=== PATIENT | male | born 1950 | race Caucasian/White ===

== ENCOUNTER → 2021-07-25 | Outpatient (CLI) | payer SELFPAY | END | disposition home or self-care (01) | LOC: LAB SHORT 15:35 | DX: L03.116 Cellulitis of left lower limb (principal) | CPT/HCPCS: 87070; 87075; 87077; 87147; 87186; 87205 ==

== ENCOUNTER → 2022-01-15 | Outpatient (CLI) | payer MEDICARE ==
[2022-01-15 11:21] LABS: Source, Urine Clean Catch
[2022-01-15 12:35] LABS: Appearance, Urine Clear (Clear); Bilirubin, Urine Neg (Neg); Blood, Urine Neg (Neg); Color, Urine Yellow (P-Yellow); Glucose Qualitative, Urine Neg (Neg); Ketones, Urine Neg (Neg); Leukocyte Esterase, Urine 2+ (Neg); Nitrite, Urine Neg (Neg); Protein, Urine Neg (Neg); Specific Gravity, Urine 1.015 (1.003-1.022); Urobilinogen, Urine NORM (Normal)
[2022-01-15 12:52] LABS: Protein, Urine Random <5.0 mg/dL (0.0-11.9); Protein/Creat Ratio, Ur Random Unable to Calculate
[2022-01-15 13:51] LABS: Bacteria Many /hpf; Red Blood Cells, Urine 0-2 /hpf (0-2); Squamous Epithelial Cells Not Seen /hpf (Few); White Blood Cells, Urine 25-50 /hpf (0-5)
[2022-01-18 11:08] LABS: M-SPIKE, % Not Observed % (Not Observed); PROTEIN,TOTAL,URINE <4.0 mg/dL (Not Estab.)
== END | disposition home or self-care (01) ==
LOC: LAB 10:54 → LAB SHORT 10:54
PROVIDERS: Internal Medicine Nephrology
DX: N18.32 Chronic kidney disease, stage 3b (principal)
CPT/HCPCS: 81001; 82570; 84156

== ENCOUNTER 2022-02-17 15:24 | Emergency (ER) | payer MEDICARE, OTHER ==
[~2022-02-17] VITALS: Ht 188 cm; Wt 102.1 kg
[2022-02-17 16:23] LABS: BASOPHILS ABSOLUTE AUTO 0.05 K/mm3 (0.00-0.23); BASOPHILS PERCENT AUTO 0 % (0-2); EOSINOPHILS ABSOLUTE AUTO 0.59 K/mm3 (0.00-0.68); EOSINOPHILS PERCENT AUTO 5 % (0-6); Hematocrit 31.6 % (37.0-53.0); Hemoglobin 10.5 g/dL (13.5-17.5); IMMATURE GRAN ABSOLUTE AUTO 0.03 K/mm3 (0.00-0.10); IMMATURE GRAN PERCENT AUTO 0 % (0-1); LYMPHOCYTES ABSOLUTE AUTO 1.82 K/mm3 (0.84-5.20); LYMPHOCYTES PERCENT AUTO 15 % (21-46); MONOCYTES ABSOLUTE AUTO 0.76 K/mm3 (0.16-1.47); MONOCYTES PERCENT AUTO 6 % (4-13); Mean Corpuscular HGB 33.2 pg (26.0-34.0); Mean Corpuscular HGB Conc 33.2 g/dL (31.5-36.5); Mean Corpuscular Volume 100 fL (80-100); Mean Platelet Volume 11.4 fL (9.1-12.4); NEUTROPHILS ABSOLUTE AUTO 8.95 K/mm3 (1.96-9.15); NEUTROPHILS PERCENT AUTO 74 % (41-73); Platelet Count 147 K/mm3 (150-400); RDW Coefficient Variation 13.7 % (11.7-14.2); RDW Standard Deviation 50.5 fL (35.1-46.3); Red Blood Cell Count 3.16 M/mm3 (4.30-5.90)
[2022-02-17 16:35] LABS: Albumin, Blood 3.7 g/dL (3.4-5.0); Albumin/Globulin Ratio 1.1 (0.8-1.8); Bilirubin, Total 0.7 mg/dL (0.1-1.0); Bun/Creatinine Ratio 40.5 (12.0-20.0); Calcium, Blood 9.2 mg/dL (8.5-10.1); Creatinine, Blood 2.2 mg/dL (0.60-1.20); Globulin, Blood 3.4 g/dL (2.2-4.0); Potassium, Blood 4.9 mmol/L (3.5-5.5); Total Protein, Blood 7.1 g/dL (6.4-8.2)
[2022-02-17] MEDS ORDERED: CLIN300 PO (19:30)
== END 2022-02-17 20:07 | disposition home or self-care (01) ==
LOC: ER 15:24
PROVIDERS: Physician Assistant
DX: L03.221 Cellulitis of neck (principal); I25.10 Atherosclerotic heart disease of native coronary artery without angina pectoris; G47.33 Obstructive sleep apnea (adult) (pediatric); F17.210 Nicotine dependence, cigarettes, uncomplicated; I11.0 Hypertensive heart disease with heart failure; I50.9 Heart failure, unspecified; E11.9 Type 2 diabetes mellitus without complications; Z91.041 Radiographic dye allergy status; Z95.1 Presence of aortocoronary bypass graft
CPT/HCPCS: 36415; 70490; 80053; 83690; 85025

== ENCOUNTER → 2022-02-28 | Outpatient (CLI) | payer MEDICARE ==
[~2022-02-28] MED LIST: CLIN300 PO
== END | disposition home or self-care (01) ==
LOC: LAB SHORT 07:41
DX: R22.1 Localized swelling, mass and lump, neck (principal)
CPT/HCPCS: 88173

== ENCOUNTER 2022-04-24 09:43 | Day surgery (SDC) | payer MEDICARE, OTHER ==
[~2022-04-24] VITALS: Ht 188 cm; Wt 108.0 kg
[2022-04-24] MEDS ORDERED: ALBU90OI (10:05)
[2022-04-24] MEDS ORDERED: ALLO100 (10:05)
[2022-04-24] MEDS ORDERED: Aspir 8181 MG (10:07)
[2022-04-24] MEDS ORDERED: ATOR40TA (10:07)
[2022-04-24] MEDS ORDERED: FURO20 (10:07)
[2022-04-24] MEDS ORDERED: CARV3.125 (10:07)
[2022-04-24] MEDS ORDERED: LISI5 (10:08)
[2022-04-24] MEDS ORDERED: GABA300 (10:08)
[2022-04-24] MEDS ORDERED: GLIP5ER (10:08)
[2022-04-24] MEDS ORDERED: ATROVENT HFA12.9 GM (10:08)
[2022-04-24] MEDS ORDERED: TAMS.4ER (10:09)
[2022-04-24] MEDS ORDERED: ONDA4 (10:09)
--- NOTE | 2022-04-24 10:33 | NUR ---
04/24/[address] NOTIFIED THAT PT HAS WHEEZES BILATERALLY THROUGHOUT ASCULATION BY [email or web address].
--- NOTE | 2022-04-24 11:20 | NUR ---
04/24/22 1120 ZACH PAIZ 0.25MG OF EPI ADDED TO 50MLS OF INJECTABLE NS TO CREATE A SOLUTION OF NS WITH EPI 1:200,000. 6MLS OF SOLUTION INJECTED PRIOR TO STERILE PREP.
--- NOTE | 2022-04-24 13:09 | NUR ---
04/24/22 1309 MARI DENIS TRIAL FROM 15L TO 10L VIA FACE TENT. O2 98%
--- NOTE | 2022-04-24 14:03 | NUR ---
04/24/22 1403 MARI DENIS PAIN 9+/10. WILL GIVE ANOTHER DOSE OF FENTANYL 510MCG= 150MCG TOTAL
== END 2022-04-24 15:25 | disposition home or self-care (01) ==
LOC: ORSCSDS 09:43
PROVIDERS: Otolaryngology
PROC: 0CB90ZZ Excision of Left Parotid Gland, Open Approach (ICD-10-PCS; principal; 2022-04-24 11:00)
PROC: 00BM0ZZ Excision of Facial Nerve, Open Approach (ICD-10-PCS; principal; 2022-04-24 11:00)
DX: D11.0 Benign neoplasm of parotid gland (principal); I12.9 Hypertensive chronic kidney disease with stage 1 through stage 4 chronic kidney disease, or unspecified chronic kidney disease; E11.22 Type 2 diabetes mellitus with diabetic chronic kidney disease; N18.4 Chronic kidney disease, stage 4 (severe); I48.91 Unspecified atrial fibrillation; I51.9 Heart disease, unspecified; E78.5 Hyperlipidemia, unspecified; J44.9 Chronic obstructive pulmonary disease, unspecified; I50.9 Heart failure, unspecified; Z95.9 Presence of cardiac and vascular implant and graft, unspecified; Z79.82 Long term (current) use of aspirin; Z79.84 Long term (current) use of oral hypoglycemic drugs; Z79.51 Long term (current) use of inhaled steroids; Z79.899 Other long term (current) drug therapy; F17.210 Nicotine dependence, cigarettes, uncomplicated
CPT/HCPCS: 82947; A9270; J0171; J1100; J2250; J2405; J2704; J3010; J7120

== ENCOUNTER → 2022-08-06 | Outpatient (CLI) | payer MEDICARE, OTHER ==
[~2022-08-06] MED LIST changes: +ALBU90OI; +ALLO100 PO; +ATOR40TA PO; +ATROVENT HFA12.9 GM; +Aspir 8181 MG; +CARV3.125 PO; +FURO20 PO; +GABA300 PO; +GLIP5ER PO; +LISI5 PO; +Norco 5-325 Ta1 EACH PO; +ONDA4 PO; +TAMS.4ER PO
[2022-08-06 16:37] LABS: BASOPHILS ABSOLUTE AUTO 0.03 K/mm3 (0.00-0.23); BASOPHILS PERCENT AUTO 0 % (0-2); EOSINOPHILS ABSOLUTE AUTO 0.25 K/mm3 (0.00-0.68); EOSINOPHILS PERCENT AUTO 3 % (0-6); Hematocrit 24.4 % (37.0-53.0); Hemoglobin 7.7 g/dL (13.5-17.5); IMMATURE GRAN ABSOLUTE AUTO 0.03 K/mm3 (0.00-0.10); IMMATURE GRAN PERCENT AUTO 0 % (0-1); LYMPHOCYTES ABSOLUTE AUTO 1.49 K/mm3 (0.84-5.20); LYMPHOCYTES PERCENT AUTO 17 % (21-46); MONOCYTES ABSOLUTE AUTO 0.67 K/mm3 (0.16-1.47); MONOCYTES PERCENT AUTO 8 % (4-13); Mean Corpuscular HGB 32.9 pg (26.0-34.0); Mean Corpuscular HGB Conc 31.6 g/dL (31.5-36.5); Mean Corpuscular Volume 104 fL (80-100); Mean Platelet Volume 10.8 fL (9.1-12.4); NEUTROPHILS ABSOLUTE AUTO 6.22 K/mm3 (1.96-9.15); NEUTROPHILS PERCENT AUTO 72 % (41-73); NRBC ABSOLUTE 0.02 K/mm3 (0.00-0.02); NRBC Auto 0.2 /100 WBC (0.0-0.2); Platelet Count 178 K/mm3 (150-400); RDW Coefficient Variation 18.2 % (11.7-14.2); RDW Standard Deviation 67.9 fL (35.1-46.3); Red Blood Cell Count 2.34 M/mm3 (4.30-5.90); White Blood Cell Count 8.69 K/mm3 (4.00-11.30)
[2022-08-06 16:43] LABS: Bun/Creatinine Ratio 28.6 (12.0-20.0); Calcium, Blood 8.7 mg/dL (8.5-10.1); Creatinine, Blood 2.8 mg/dL (0.60-1.20); Potassium, Blood 5.7 mmol/L (3.5-5.5)
== END | disposition home or self-care (01) ==
LOC: LAB SHORT 16:29
PROVIDERS: Family Medicine
DX: I50.9 Heart failure, unspecified (principal); N19 Unspecified kidney failure
CPT/HCPCS: 80048; 83880; 85025

== ENCOUNTER 2022-08-09 15:24 | Observation (INO) | payer MEDICARE, OTHER ==
[~2022-08-09] VITALS: Ht 188 cm; Wt 115.6 kg
[~2022-08-09 15:24] MED LIST changes: -ALBU90OI; +ALBU90OI INH; -ATROVENT HFA12.9 GM; +ATROVENT HFA12.9 GM INH; -Norco 5-325 Ta1 EACH PO
[2022-08-09 16:07] LABS: Source, Urine Clean Catch
[2022-08-09 16:12] LABS: Appearance, Urine Turbid (Clear); Bilirubin, Urine Neg (Neg); Blood, Urine 3+ (Neg); Color, Urine Yellow (P-Yellow); Glucose Qualitative, Urine Neg (Neg); Ketones, Urine Neg (Neg); Leukocyte Esterase, Urine 3+ (Neg); Nitrite, Urine Pos (Neg); Protein, Urine 2+ (Neg); Specific Gravity, Urine 1.015 (1.003-1.022); Urobilinogen, Urine NORM (Normal)
[2022-08-09 16:27] LABS: White Blood Cells, Urine TNTC /hpf (0-5)
[2022-08-09 16:27] LABS: BASOPHILS ABSOLUTE AUTO 0.03 K/mm3 (0.00-0.23); BASOPHILS PERCENT AUTO 0 % (0-2); EOSINOPHILS ABSOLUTE AUTO 0.26 K/mm3 (0.00-0.68); EOSINOPHILS PERCENT AUTO 3 % (0-6); Hematocrit 26.4 % (37.0-53.0); Hemoglobin 8.4 g/dL (13.5-17.5); IMMATURE GRAN ABSOLUTE AUTO 0.02 K/mm3 (0.00-0.10); IMMATURE GRAN PERCENT AUTO 0 % (0-1); LYMPHOCYTES ABSOLUTE AUTO 1.69 K/mm3 (0.84-5.20); LYMPHOCYTES PERCENT AUTO 17 % (21-46); MONOCYTES ABSOLUTE AUTO 0.73 K/mm3 (0.16-1.47); MONOCYTES PERCENT AUTO 8 % (4-13); Mean Corpuscular HGB 32.9 pg (26.0-34.0); Mean Corpuscular HGB Conc 31.8 g/dL (31.5-36.5); Mean Corpuscular Volume 104 fL (80-100); Mean Platelet Volume 11.3 fL (9.1-12.4); NEUTROPHILS ABSOLUTE AUTO 7.03 K/mm3 (1.96-9.15); NEUTROPHILS PERCENT AUTO 72 % (41-73); Platelet Count 195 K/mm3 (150-400); RDW Coefficient Variation 17.9 % (11.7-14.2); RDW Standard Deviation 66.8 fL (35.1-46.3); Red Blood Cell Count 2.55 M/mm3 (4.30-5.90); White Blood Cell Count 9.76 K/mm3 (4.00-11.30)
[2022-08-09 16:35] LABS: Bacteria Mod /hpf; Squamous Epithelial Cells Not Seen /hpf (Few)
[2022-08-09 16:53] LABS: Albumin, Blood 3.1 g/dL (3.4-5.0); Albumin/Globulin Ratio 0.8 (0.8-1.8); Bilirubin, Total 0.6 mg/dL (0.1-1.0); Bun/Creatinine Ratio 34.1 (12.0-20.0); Calcium, Blood 8.8 mg/dL (8.5-10.1); Creatinine, Blood 2.49 mg/dL (0.60-1.20); Globulin, Blood 3.7 g/dL (2.2-4.0); Potassium, Blood 4.6 mmol/L (3.5-5.5); Total Protein, Blood 6.8 g/dL (6.4-8.2)
[2022-08-09] MEDS ORDERED: Norco 5-325 Ta1 EACH PO (20:29)
[2022-08-09 22:51] LABS: Hematocrit 23.9 % (37.0-53.0); Hemoglobin 7.6 g/dL (13.5-17.5)
[2022-08-10 03:50] LABS: BASOPHILS ABSOLUTE AUTO 0.03 K/mm3 (0.00-0.23); BASOPHILS PERCENT AUTO 0 % (0-2); EOSINOPHILS ABSOLUTE AUTO 0.28 K/mm3 (0.00-0.68); EOSINOPHILS PERCENT AUTO 4 % (0-6); Hematocrit 23.6 % (37.0-53.0); Hemoglobin 7.6 g/dL (13.5-17.5); IMMATURE GRAN ABSOLUTE AUTO 0.02 K/mm3 (0.00-0.10); IMMATURE GRAN PERCENT AUTO 0 % (0-1); LYMPHOCYTES ABSOLUTE AUTO 1.88 K/mm3 (0.84-5.20); LYMPHOCYTES PERCENT AUTO 24 % (21-46); MONOCYTES ABSOLUTE AUTO 0.66 K/mm3 (0.16-1.47); MONOCYTES PERCENT AUTO 9 % (4-13); Mean Corpuscular HGB 33.2 pg (26.0-34.0); Mean Corpuscular HGB Conc 32.2 g/dL (31.5-36.5); Mean Corpuscular Volume 103 fL (80-100); Mean Platelet Volume 11.1 fL (9.1-12.4); NEUTROPHILS ABSOLUTE AUTO 4.92 K/mm3 (1.96-9.15); NEUTROPHILS PERCENT AUTO 63 % (41-73); Platelet Count 172 K/mm3 (150-400); RDW Coefficient Variation 17.5 % (11.7-14.2); RDW Standard Deviation 65.3 fL (35.1-46.3); Red Blood Cell Count 2.29 M/mm3 (4.30-5.90); White Blood Cell Count 7.79 K/mm3 (4.00-11.30)
[2022-08-10 04:05] LABS: Bun/Creatinine Ratio 32.1 (12.0-20.0); Calcium, Blood 8.4 mg/dL (8.5-10.1); Creatinine, Blood 2.71 mg/dL (0.60-1.20); Potassium, Blood 4.5 mmol/L (3.5-5.5)
--- NOTE | 2022-08-10 05:55 | NUR ---
END OF SHIFT SUMMARY PT AGITATED, UNCOOPERATIVE, NEEDY AND BORDERLINE VERBALLY AGGRESSIVE, 1150CC UO, SOFT, BROWN, NORMAL APPEARING BM ON BSC, CPAP OVERNIGHT WITH 5LPM BLEED IN, PT HAS COPIUS, THICK, GRAYISH, WHITE SECRETIONS, SOFT B/P AT TIMES, AFEBRILE, HGB AT 2300-7.6 AND 7.6 AGAIN WITH AM LABS, PT DID AGREE TO REMAIN NPO AFTER DROP IN HGB OVERNIGHT AND AGREED TO FURTHER DISCUSS NEED FOR SCOPE WITH
--- NOTE | 2022-08-10 10:29 | NUR ---
PT TO EGD SCOPE AT 1020. PT TRANSFERED FROM BED TO [facility], MINIMAL ASSISTANCE, TOLERATED WELL. PT ON RA.
--- NOTE | 2022-08-10 10:59 | NUR ---
08/10/22 1059 Wayne Heaton MONITOR INTACT WITH CONTINUOUS PULSE OXIMETRY AND INTERMITTENT BP. History, Chart, Medications and Allergies reviewed before start of procedure. 3-LEAD EKG REVIEWED WITH PHYSICIAN PRIOR TO START OF PROCEDURE. O2 VIA N/C INTACT THROUGHOUT SEDATION/PROCEDURE. Bite Block Placed
--- NOTE | 2022-08-10 19:34 | NUR ---
SHIFT SUMMARY PT A/OX3-4. PT BP'S SOFTER TODAY WITH DIASTOLIC RANGING 40-60, MAPS REMAINED ABOVE 65. OTHER VSS THROUGHOUT SHIFT WITH 02 SATS IN THE 90'S ON RA. NO REPORT OF CHEST PAIN/PRESSURE THROUGHOUT SHIFT. NO REPORT OF SOB/DYSPNEA THROUGHOUT SHIFT. PT REPORTED SOME LIGHTHEADEDNESS THIS AM AFTER RETURNING FROM PROCEDURE, PT RESTED FOR A COUPLE HOURS AFTER PROCEDURE. PT USING URINAL AT THE BEDSIDE, USING FWW FOR STABILITY, TOLERATED WELL. PT SISTER AT BEDSIDE AND UPDATED.
[2022-08-11 03:41] LABS: BASOPHILS ABSOLUTE AUTO 0.02 K/mm3 (0.00-0.23); BASOPHILS PERCENT AUTO 0 % (0-2); EOSINOPHILS ABSOLUTE AUTO 0.27 K/mm3 (0.00-0.68); EOSINOPHILS PERCENT AUTO 3 % (0-6); Hematocrit 24.3 % (37.0-53.0); Hemoglobin 7.7 g/dL (13.5-17.5); IMMATURE GRAN ABSOLUTE AUTO 0.02 K/mm3 (0.00-0.10); IMMATURE GRAN PERCENT AUTO 0 % (0-1); LYMPHOCYTES ABSOLUTE AUTO 1.63 K/mm3 (0.84-5.20); LYMPHOCYTES PERCENT AUTO 20 % (21-46); MONOCYTES ABSOLUTE AUTO 0.66 K/mm3 (0.16-1.47); MONOCYTES PERCENT AUTO 8 % (4-13); Mean Corpuscular HGB 32.6 pg (26.0-34.0); Mean Corpuscular HGB Conc 31.7 g/dL (31.5-36.5); Mean Corpuscular Volume 103 fL (80-100); Mean Platelet Volume 11.5 fL (9.1-12.4); NEUTROPHILS ABSOLUTE AUTO 5.54 K/mm3 (1.96-9.15); NEUTROPHILS PERCENT AUTO 68 % (41-73); NRBC ABSOLUTE 0.02 K/mm3 (0.00-0.02); NRBC Auto 0.2 /100 WBC (0.0-0.2); Platelet Count 170 K/mm3 (150-400); RDW Coefficient Variation 17.3 % (11.7-14.2); RDW Standard Deviation 66.1 fL (35.1-46.3); Red Blood Cell Count 2.36 M/mm3 (4.30-5.90); White Blood Cell Count 8.14 K/mm3 (4.00-11.30)
[2022-08-11 04:31] LABS: Albumin, Blood 2.7 g/dL (3.4-5.0); Anion Gap 3 mmol/L (6-16); Blood Urea Nitrogen 87 mg/dL (8-24); Bun/Creatinine Ratio 34.5 (12.0-20.0); CO2, Blood 25 mmol/L (21-32); Calcium, Blood 8.5 mg/dL (8.5-10.1); Chloride, Blood 108 mmol/L (98-108); Creatinine, Blood 2.52 mg/dL (0.60-1.20); Ferritin, Serum 66 ng/mL (26-388); Glomerular Filtration Rate 26 (60-); Glucose, Blood 118 mg/dL (70-99); Iron Serum 20 ug/dL (65-175); Percent Saturation 6.2 % (20.0-50.0); Phosphorus, Blood 4.9 mg/dL (2.5-4.9); Potassium, Blood 4.7 mmol/L (3.5-5.5); Sodium, Blood 136 mmol/L (136-145); Total Iron Binding Capacity 324 ug/dL (250-450)
--- NOTE | 2022-08-11 05:39 | NUR ---
END OF SHIFT SUMMARY PT UP AND DOWN ALL NIGHT, WORE CPAP EASILY WITH HOME MASK, STILL COPIOUS, THICK SECRETIONS, REFUSED MIDNIGHT DOSE OF LASIX THAT WAS ORDERED AT 2215, AGREES TO TAKE THE ORDERED DOSES BEGINNING THIS AM, DID NOT WANT TO BE UP ALL NIGHT WITH THE URINAL, VSS, NO NOTABLE CHANGES IN LABS THIS AM
--- NOTE | 2022-08-11 07:30 | NUR ---
ASSUMED CARE: PT SITTING UPRIGHT AT SIDE OF BED. ALERT, ORIENTED, TALKING TO STAFF. ON RA, AFIB IN 70S ON TELE. RESPIRATORY THERAPIST AT BEDSIDE WELL. PT DENIES NEEDS OR CONCERNS AT THIS TIME.
[2022-08-11] MEDS ORDERED: TRELEGY ELLIPT1 EACH INH (11:54)
--- NOTE | 2022-08-11 13:40 | NUR ---
PT GIVEN INSTRUCTIONS REGARDING MEDICATIONS AND FOLLOW UP APPOINTMENTS INCLUDING PRIMARY AND GI. IV DC'D WNL. PT DENIED FURTHER QUESTIONS OR CONCERNS. TAKEN OUT VIA WHEEL CHAIR BY HOSPITAL STAFF.
== END 2022-08-11 13:05 | disposition home or self-care (01) ==
LOC: ER 15:24 → ERHOLD 15:25 → PCU 15:25
PROVIDERS: Family Medicine; Internal Medicine Endocrinology, Diabetes & Metabolism; Internal Medicine Gastroenterology; Student in an Organized Health Care Education/Training Program; ADMIT Hospitalist
PROC: 0DJ08ZZ Inspection of Upper Intestinal Tract, Via Natural or Artificial Opening Endoscopic (ICD-10-PCS; principal; 2022-08-10 10:30)
DX: D64.89 Other specified anemias (principal); K92.2 Gastrointestinal hemorrhage, unspecified; I95.9 Hypotension, unspecified; N17.9 Acute kidney failure, unspecified; I13.0 Hypertensive heart and chronic kidney disease with heart failure and stage 1 through stage 4 chronic kidney disease, or unspecified chronic kidney disease; E11.22 Type 2 diabetes mellitus with diabetic chronic kidney disease; N18.32 Chronic kidney disease, stage 3b; I50.23 Acute on chronic systolic (congestive) heart failure; G89.4 Chronic pain syndrome; J44.9 Chronic obstructive pulmonary disease, unspecified; I25.10 Atherosclerotic heart disease of native coronary artery without angina pectoris; E11.42 Type 2 diabetes mellitus with diabetic polyneuropathy; M10.9 Gout, unspecified; I48.11 Longstanding persistent atrial fibrillation; N40.0 Benign prostatic hyperplasia without lower urinary tract symptoms; E78.00 Pure hypercholesterolemia, unspecified; F17.200 Nicotine dependence, unspecified, uncomplicated; Z91.041 Radiographic dye allergy status
CPT/HCPCS: 36415; 71045; 80048; 80053; 80069; 81001; 82728; 82947; 83540; 83550; 83880; 84484; 85014; 85018; 85025; 87086; 93005; 93010; 93306; 94640; 94660; 94664; 94762; 96374; 96375; 99285-25; A9270; C9113; J1940; J2916; J7120

== ENCOUNTER → 2022-08-22 | Outpatient (CLI) | payer MEDICARE, OTHER ==
[~2022-08-22] MED LIST changes: +Norco 5-325 Ta1 EACH PO; +TRELEGY ELLIPT1 EACH INH
[2022-08-22 19:21] LABS: Creatinine, Urine Random 32.6 mg/dL (27.00-270.00); Protein, Urine Random 14.8 mg/dL (0.0-11.9); Protein/Creat Ratio, Ur Random 0.5
== END | disposition home or self-care (01) ==
LOC: LAB SHORT 14:45
PROVIDERS: Internal Medicine Nephrology
DX: I12.9 Hypertensive chronic kidney disease with stage 1 through stage 4 chronic kidney disease, or unspecified chronic kidney disease (principal); N18.4 Chronic kidney disease, stage 4 (severe)
CPT/HCPCS: 82570; 84156